=== PATIENT | male | born 1985 | race American Indian/Alaskan Native ===

== ENCOUNTER 2017-06-03 18:07 | Emergency (ER) | payer BC ==
[2017-06-03 18:48] VITALS: BP 126/77; PULSE 80; RESP 18; TEMP 98.2; O2SAT 98; BMI 25.7
--- NOTE | 2017-06-03 19:37 | C.PDOC ---
History Of Present Illness 31 year old male with complaints of lower back pain starting today at work during training. He denies any direct back injury. Pain is worse on the left side and worsened with movement and describes pain as aching. He states he has history of prior back pain similar to this. The pain is non-radiating, and denies any numbness, weakness or incontinence. Time Seen by Provider: 06/03/17 19:04 Chief Complaint (Nursing): Back Pain History Per: Patient History/Exam Limitations: no limitations Onset/Duration Of Symptoms: Hrs Current Symptoms Are (Timing): Still Present Quality Of Discomfort: "Pain" Severity: Mild Previous Symptoms: Back Pain Associated Symptoms: None Exacerbating Factor(s): Movement, Standing Past Medical History Reviewed: Historical Data, Nursing Documentation, Vital Signs Vital Signs: Last Vital Signs Temp 98.2 F 06/03/17 18:48 Pulse 80 06/03/17 18:48 Resp 18 06/03/17 18:48 BP 126/77 06/03/17 18:48 Pulse Ox 98 06/03/17 19:37 - Medical History PMH: No Chronic Diseases Surgical History: No Surg Hx Family History: States: Unknown Family Hx - Social History Hx Alcohol Use: No Hx Substance Use: No - Immunization History Hx Tetanus Toxoid Vaccination: No Hx Influenza Vaccination: No Hx Pneumococcal Vaccination: No Review Of Systems Except As Marked, All Systems Reviewed And Found Negative. Musculoskeletal: Positive for: Back Pain Physical Exam - Physical Exam Appears: Well, Non-toxic, No Acute Distress Skin: Warm, Dry, No Rash, No Ecchymosis Head: Atraumatic, Normacephalic Eye(s): bilateral: Normal Inspection, EOMI Neck: Normal ROM Chest: Symmetrical Cardiovascular: Rhythm Regular, No Murmur Respiratory: Normal Breath Sounds, No Rales, No Rhonchi, No Wheezing Back: Normal Inspection, No CVA Tenderness, No Vertebral Tenderness, Paraspinal Tenderness (Paralumbar tenderness), No Straight Leg Raising Extremity: Bilateral: Atraumatic, Normal Color And Temperature, Normal ROM Neurological/Psych: Oriented x3, Normal Speech Gait: Steady ED Course And Treatment O2 Sat by Pulse Oximetry: 98 (room air) Pulse Ox Interpretation: Normal Medical Decision Making Medical Decision Making: Patient with low back pain onset today. Exam shows muscular tenderness. Patient treated with Motrin and Flexeril. On re-evaluation the patient reports feeling better and is stable for discharge. Patient given Rx. Disposition Counseled Patient/Family Regarding: Diagnosis, Need For Followup, Rx Given - Disposition Referrals: [facility] [Outside] [facility] [Outside] [facility] [Outside] Disposition: HOME/ ROUTINE Disposition Time: 20:00 Condition: GOOD Additional Instructions: Follow up with your primary medical doctor or clinic in 2-5 days for further evaluation. Take pain medications as prescribed. Apply heat to the area 2-3 times per day Return to the emergency department at any time if symptoms persist or worsen. Prescriptions: Cyclobenzaprine [Cyclobenzaprine HCl] 10 mg PO TID #30 tab Ibuprofen [Motrin] 600 mg PO Q8 #30 tab Instructions: Acute Low Back Pain (DC) Forms: [facility] (Greenlandic) - POA Present On Arrival: None - Clinical Impression Clinical Impression: Low back pain
== END 2017-06-03 20:07 | disposition home or self-care (01) ==
LOC: C.ER 18:07
DX: M54.5 Low back pain (principal)